=== PATIENT | male | born 1970 | race Caucasian/White ===

== ENCOUNTER 2018-10-18 09:00 | Emergency (ER) | payer BC, SELFPAY | END 2018-10-18 10:20 | disposition home or self-care (01) | LOC: MADERS 09:00 | DX: S80.11XA Contusion of right lower leg, initial encounter (principal); M54.5 Low back pain; E78.5 Hyperlipidemia, unspecified; V43.52XA Car driver injured in collision with other type car in traffic accident, initial encounter | CPT/HCPCS: 99283 ==